=== PATIENT | female | born 1975 | race Caucasian/White ===

== ENCOUNTER 2020-06-26 21:46 | Emergency (ER) | payer BC, MEDICAID ==
[~2020-06-26] VITALS: Ht 165.1 cm; Wt 64.0 kg
[~2020-06-26 21:46] MED LIST: ALPR0.5T7 PO; IBUP-1223 PO; VALR1TAB PO
[2020-06-26 21:50] VITALS: BP 159/53
--- NOTE | 2020-06-26 21:51 | NUR ---
THIS IS A 44F BIB EMS FOR ETOH. PT WAS FOUND SLEEPING ON GROUND UNDER A TREE AT A [facility]. PT UNABLE TO COMMUNICATE WHERE SHE CAME FROM/ WHERE SHE LIVES. PT ARRIVED TO ED HEAVILY INTOXCATED. UNABLE TO AMBULATE STEADILY AND VERY CONFUSED. PT DOES NOT KNOW WHERE SHE IS OR HOW SHE GOT HERE. PT VARIES FROM CRYING HEAVILY TO SHOUTING AT RN "WHY AREN'T YOU PANAMANIAN" PT CONNECTED TO MONITORING.
--- NOTE | 2020-06-26 22:00 | NUR ---
PT REMOVING ALL MONITORING
--- NOTE | 2020-06-26 22:17 | NUR ---
LATE ENTRY: PT OUT OF BED NOT FOLLOWING VERBAL COMMANDS. DEPARTED ED AND WAS HIDING IN CORNER NEAR ICU. PT UNABLE TO PROVIDE ADDRESS OR NAME OF WHO TO CALL FOR HER. PT COMBATIVE WITH SECURITY UPON ESCORT TO ROOM. PT CARRIED TO ROOM BY SECURITY AND PLACED IN 2 PT RESTRAINTS FOR SAFETY.
--- NOTE | 2020-06-26 22:21 | NUR ---
PT REMOVING PULSE OX REFUSING VS AT THIS TIME
--- NOTE | 2020-06-26 22:44 | NUR ---
PT THRASHING ON GURNEY KICKING RAILS IN ATTEMPT TO FREE SELF FROM RESTRAINTS. ATTEMPTED TO REORIENT PT, UNABLE TO REORIENT, PT REFUSING TO FOLLOW COMMANDS SHOUTS "FUCK YOU IGNACIA" ERP UPDATED ORDER FOR MEDS RECIEVED.
[2020-06-26] MEDS ORDERED: MIDAZOLAM 1 MG/ML, 2ML ONE (22:45)
--- NOTE | 2020-06-26 22:49 | NUR ---
PT MEDICATED PER MAR FOR AGGITATION/ AGGRESSION
[2020-06-26] MEDS ORDERED: MIDAZOLAM 1 MG/ML, 5ML IM ONE (23:00)
--- NOTE | 2020-06-26 23:47 | NUR ---
PT NOW PLACED IN 4PT RESTRAINTS SHE IS ATTEMPTING TO KICK BED RAILS AND STAFF. PT ALSO BITING ARM RESTRAINTS.
--- NOTE | 2020-06-27 00:22 | NUR ---
PT STILL THRASHING IN BED AT THIS TIME
--- NOTE | 2020-06-27 00:38 | NUR ---
PT FIGHTING RESTRAINTS AND SHOUTING, HAS REMOVED CLOTHING AND IS THREATENING RN WHILE ATTEMPTING TO REDRESS PT.
--- NOTE | 2020-06-27 01:08 | NUR ---
PT NOW VERBALIZING ADDRESS, ABLE TO AMBULATE AND PROVIDED [facility]AX[facility] HOME.
== END 2020-06-27 01:24 | disposition home or self-care (01) ==
LOC: ED 23:57
DX: F10.120 Alcohol abuse with intoxication, uncomplicated (principal); F17.210 Nicotine dependence, cigarettes, uncomplicated
CPT/HCPCS: 96372; 99283; 99406; J2250

== ENCOUNTER 2020-08-29 10:23 | Emergency (ER) | payer BC, MEDICAID ==
[~2020-08-29] VITALS: Ht 152.4 cm; Wt 61.0 kg
--- NOTE | 2020-08-29 11:11 | NUR ---
pediatric dentist note: Pt to room from lobby.
[2020-08-29] MEDS ORDERED: METHOCARBAMOL 750 MG TABLET ONE (11:50)
[2020-08-29] MEDS ORDERED: KETOROLAC 30 MG/1 ML ONE (11:51)
[2020-08-29] MEDS ORDERED: KETOROLAC 30 MG/1 ML IM ONE (12:00)
[2020-08-29] MEDS ORDERED: METHOCARBAMOL 750 MG TABLET PO ONE (12:00)
[2020-08-29 13:57] VITALS: BP 159/104
--- NOTE | 2020-08-29 14:21 | NUR ---
TASK RN: DC EDUCATION PROVIDED, PT DEMONSTRATES UNDERSTANDING. PT AMBULATED STEADILY TO DC WITH RN.
== END 2020-08-29 14:22 | disposition home or self-care (01) ==
LOC: ED 12:15
DX: M54.12 Radiculopathy, cervical region (principal); M54.2 Cervicalgia; M48.061 Spinal stenosis, lumbar region without neurogenic claudication; F17.210 Nicotine dependence, cigarettes, uncomplicated
CPT/HCPCS: 72141; 96372; 99284; J1885